=== PATIENT | male | born 1965 | race Hispanic/Latino ===

== ENCOUNTER 2019-10-16 19:41 | Emergency (ER) | payer OTHER ==
[~2019-10-16] VITALS: Ht 167.6 cm; Wt 104.3 kg
--- OUTSIDE RECORDS SUMMARY | 2019-10-16 19:43 | XMS REPORT | Continuity of Care Document ---
Author Author [employer], YARITZA Organization [employer] [facility] Address Unknown Phone Unavailable Care Team Providers Care Physician Interventional Cardiologist Name Role Phone [employer] Unavailable Un available Problems Problem Status Onset Date Classification Date Reported Comments Source Left sciatic nerve pain Active Diagnosis 08/22/2018 Enayet Rahim Screening cholesterol level Ac tive Diagnosis 0 08/22/2018 Enayet Rahim Screening for diabetes mellitus Active Diagnosis 0 08/22/2018 Enayet Rahim GERD without esophagitis Active Problem 08/22/2018 Enayet Rahim Epigastric pain Active Diagnosis 08/22/2018 Enayet Rahim LUQ pain Active Diagnosis 08/22/2018 Enayet Rahim Encounter to establish care Ac tive Diagnosis 0 08/22/2018 Enayet Rahim Medications Medication Details Route Status Patient Instructions Ordering Provider Order Date Source Protonix 1 tablet Orally Active 40 MG Orally Once a day [place] 08/15/2018 Enayet Rahim Zantac 1 tablet at bedtime Orally Active 150 MG Orally Once a day [facility] Enayet Rahim Allergies, Adverse Reactions, Alerts Substance Category Reaction Severity Reaction type Status Date Reported Comments Source N.K.D.A. Adverse Reaction Info Not Available Adverse Reaction Active 08/15/2018 Enayet Rahim Immunizations No Data Provided for This Section Results No Data Provided for This Section Pathology Reports No Data Provided for This Section Diagnostic Reports No Data Provided for This Section Consultation Notes No Data Provided for This Section Discharge Summaries No Data Provided for This Section History and Physicals No Data Provided for This Section Vital Signs Vital Sign Value Date Comments Source Weight 240 08/15/2018 Enayet Rahim Height 65 0 08/15/2018 Enayet Rahim Temperature Oral (F) 97.3 F 08/15/2018 Enayet Rahim Diastolic (mm Hg) 79 08/15/2018 Enayet Rahim Systolic (mm Hg) 126 08/15/2018 Enayet Rahim Encounters No Data Provided for This Section Procedures No Data Provided for This Section Assessment and Plan No Data Provided for This Section Plan of Care No Data Provided for This Section Social History No Data Provided for This Section Family History No Data Provided for This Section Advance Directives No Data Provided for This Section Functional Status No Data Provided for This Section
--- OUTSIDE RECORDS SUMMARY | 2019-10-16 19:43 | XMS REPORT | Clinical Summary ---
Author Author [facility] Organization [facility] ict Address Unknown Phone Unavailable Care Team Providers Care Low Pressure Boiler Tender Name Role Phone PCP Unavailable Allergies Comments Active Allergy Reactions Severity Noted Date Pt denies any known allergies No Known Allergies 07/29/2009 Medications End Date Status Medication Sig Dispensed Refills Start Date Active traMADol (ULTRAM) 50 mg Take 1 tablet 30 tablet 0 tabletIndications: by mouth 6 Midline low back pain every 6 hours with right-sided sciatica as needed for Pain. Active cyclobenzaprine Take 1 tablet 30 tablet 0 05/26/19 1 (FLEXERIL) 10 mg by mouth 6 tabletIndications: nightly at Midline low back pain bedtime as with right-sided sciatica needed for Muscle Spasms. Active Problems Problem Noted Date Family history of colon cancer 03/14/2013 GERD (gastroesophageal reflux disease) 07/20/2006 Immunizations Name Administration Dates Next Due Influenza Vaccine 03/14/2013 Tdap Tetanus, diphtheria, 03/14/2013 acellular pertussis Vaccine Family History Medical History Relation Name Comments Cancer Father Diabetes Father Heart Mother Cancer Paternal Uncle Cancer Paternal 2 Uncle Relation Name Status Comments Brother Alive 6 Brother colon cancer (Age 54) Daughter Alive Father prostat cancer (Age 84) Maternal Grandfather Maternal Grandmother Mother heart (Age 59) Paternal Grandfather Paternal Grandmother Paternal Uncle Paternal Uncle Sister Alive Son Alive 5 Social History Date Tobacco Use Types Packs/Day Years Used Never Smoker Tobacco Cessation: Counseling Given: No Drinks/Week oz/Week Comments Alcohol Use social drinker Yes Sex Assigned at Date Recorded Not on file Industry Job Start Date Occupation Not on file Not on file Not on file Travel End Travel History Travel Start No recent travel history available. Last Filed Vital Signs Not on file Plan of Treatment Health Maintenance Due Date Last Done Comments Colorectal Cancer Scrn 10/27/2013 08/13/2009 Annual (FIT/FOBT) Age 50 to 75 Results Not on fileafter 10/15/2018 Insurance Type Payer Benefit Subscriber ID Effective Phone Address Plan / Dates Group [employer] xxxxxxxxxx 2015-P [phone] [address] [place] [address]
--- OUTSIDE RECORDS SUMMARY | 2019-10-16 19:44 | XMS REPORT ---
Author Author Glen Shelley Organization [employer] Address Unknown Phone Unavailable Care Team Providers Care Component Assembler Supervisor Name Role Phone Jazmine Shelley CP Unavailable Allergies, Adverse Reactions, Alerts Substance Reaction Event Type N.K.D.A. Info Not Available Non Drug Allergy Problems Problem Type Condition Code Onset Dates Condition Statu s Assessment Left sciatic nerve pain M54.32 Acti ve Assessment Screening cholesterol level Z13.220 Active Assessment Screening for diabetes mellitus Z13.1 Active Problem Left sciatic nerve pain M54.32 Acti ve Problem GERD without esophagitis K21.9 Act magdy Assessment Epigastric pain R10.13 Active Assessment LUQ pain R10.12 Active Assessment Encounter to establish care Z76.89 Active Assessment GERD without esophagitis K21.9 Act magdy Medications Medication Code System Code Instructions Start Date End Date Status Dosage Protonix ND 85309486678 40 MG Orally Once a day August 15, 2018 Active 1 tablet Zantac ND 03750560502 150 MG Orally Once a day Act magdy 1 tablet at bedtime Vital Signs Date/Time: August 15, 2018 BMI 39.93 Index Weight 240 lbs Height 65 in Temperature 97.3 F Blood Pressure Diastolic 79 mm Hg Blood Pressure Systolic 126 mm Hg Results No Known Results Summary Purpose [employer] Submission
--- NOTE | 2019-10-16 20:07 | Emergency Department Note ---
History of Present Illnes History of Present Illness Chief Complaint: Extremity Trauma/Pain History of Present Illness This is a 53 year old male c cc sudden pain and swelling left leg yesterday while exercising, he heard it pop . Historian: Patient Onset (how long ago): day(s) (1) Location: left leg Quality: sharp Radiation: non-radiation Severity: moderate Onset quality: sudden Duration (how long): day(s) (1) Timing of current episode: constant Progression: unchanged Chronicity: new Context: recent illness, recent surgery, recent immobilization, recent travel, trauma/injury, new medications, hx of DVT/PE, non-compliance w/ medications, other Relieving factors: none Exacerbating factors: none Associated symptoms: denies other symptoms Treatments prior to arrival: none Past Medical/Family History Physician Review I have reviewed the patient's past medical and family history. Any updates have been documented here. Past Medical History Past Medical History: None Other Surgery: brain surgery Social History Smoking Cessation: Never Smoker Alcohol Use: Occasional Any Illegal Drug Use: Yes (WEED SOMETIMES PER PT) TB Exposure/Symptoms: No Physically hurt or threatened: No Other Any Pre-Existing Lines (PICC,: No Is patient up to date on immun: No Last Flu: NONE Last Pneumovax: NA Review of Systems Review of Systems Constitutional: no symptoms EENTM: no symptoms Cardiovascular: no symptoms Respiratory: no symptoms Gastrointestinal: no symptoms Genitourinary: no symptoms Musculoskeletal: as per HPI Neurological: no symptoms Psychological: no symptoms Endocrine: no symptoms Hematological/Lymphatic: no symptoms Review of other systems All other systems reviewed and negative. Physical Exam Related Data Vital signs reviewed: Yes Physical Exam CONSTITUTIONAL Constitutional: well-developed, well-nourished HENT HENT: normocephalic, atraumatic, oropharynx clear/moist, nose normal HENT L/R: left ext ear normal, right ext ear normal EYES Eyes: PERRL, conjunctivae normal NECK Neck: ROM normal PULMONARY Pulmonary: effort normal, breath sounds normal CARDIOVASCULAR Cardiovascular: regular rhythm, heart sounds normal, capillary refill normal, normal rate GASTROINTESTINAL Abdominal: soft, nontender, bowel sounds normal GENITOURINARY Genitourinary: exam deferred SKIN Skin: warm, dry MUSCULOSKELETAL Musculoskeletal: tenderness, swelling (left leg) NEUROLOGICAL Neurological: alert, oriented x 3, no gross motor or sensory deficits PSYCHOLOGICAL Psychological: mood/affect normal, judgement normal Procedures Orthopedic Splinting/Casting Injury: Injury #1 Side: left Lower extremity injury locatio: lower leg Additional comments orthogass, applied by ER . NORMAL NEURO VASCULAR POST APPLICATION Critical Care Time Subsequent provider I assumed direction of critical care for this patient from another provider of my specialty. Assessment & Plan Assessment & Plan Final Impression: (1) Acute pain due to trauma Assessment & Plan SPLINT ULTRAM Depart Disposition: HOME, SELF-CARE MANUEL ANDRADE MD October 16, 2019 20:07
[2019-10-16 20:30] VITALS: BP 164/82
== END 2019-10-16 20:30 | disposition home or self-care (01) ==
LOC: FSED 19:41
DX: M79.662 Pain in left lower leg (principal); M79.89 Other specified soft tissue disorders; Y93.01 Activity, walking, marching and hiking
CPT/HCPCS: 99283